=== PATIENT | male | born 1985 | race Caucasian/White ===

== ENCOUNTER 2019-10-26 09:24 | Emergency (ER) | payer MEDICAID ==
[~2019-10-26] VITALS: Ht 175.3 cm; Wt 100.0 kg
[2019-10-26] MEDS ORDERED: acetaminophen 325mg tablet PO STA (09:53)
[2019-10-26] MEDS ORDERED: normal saline 1000ML IV soln IV ONE (09:55)
[2019-10-26] MEDS ORDERED: thiamine 100mg tablet PO ONE (09:55)
[2019-10-26] MEDS ORDERED: folic acid 1mg tablet PO ONE (09:55)
[2019-10-26] MEDS ORDERED: clindamycin 600mg/D5W 50ml 50 ML IV ONE (10:00)
[2019-10-26] MEDS ORDERED: iohexol 300mg/ml 100ml inj. ONE (10:06)
--- NOTE | 2019-10-26 10:20 | NUR ---
PT OUT TO CT VIA WHEELCHAIR WITH SERVICE CENTER REPRESENTATIVE
[2019-10-26 10:22] LABS: BASOPHILS # (AUTO) 0.3 X10'3 (0-0.2); BASOPHILS % (AUTO) 1.2 % (0-1); EOSINOPHILS % (AUTO) 0.1 % (0-6); HEMATOCRIT 38.4 % (42.0-52.0); HEMOGLOBIN 13.3 g/dl (14.0-17.9); LYMPHOCYTES # (AUTO) 0.9 X10'3 (1.1-4.8); LYMPHOCYTES % (AUTO) 4.2 % (21-51); MEAN CORPUSCULAR HEMOGLOBIN 33.6 PG (27.0-31.0); MEAN CORPUSCULAR HGB CONC 34.6 g/dL (33.0-36.5); MEAN CORPUSCULAR VOLUME 97.1 FL (78-98); MEAN PLATELET VOLUME 8.6 FL (7.4-10.4); MONOCYTES % (AUTO) 4.7 % (2-12); NEUTROPHILS # (AUTO) 19.3 X10'3 (1.8-7.7); NEUTROPHILS % (AUTO) 89.8 % (42-75); PLATELET COUNT 123 X10'3 (140-440); RED BLOOD COUNT 3.96 X10'6 (4.70-6.10); RED CELL DISTRIBUTION WIDTH 15.9 % (11.5-14.5); WHITE BLOOD COUNT 21.5 X10'3 (4.5-11.0)
--- NOTE | 2019-10-26 10:32 | NUR ---
pt returns from ct and xray
[2019-10-26 10:35] LABS: PARTIAL THROMBOPLASTIN TIME 39 SECONDS (22-32)
[2019-10-26 10:46] LABS: ALANINE AMINOTRANSFERASE 33 U/L (12-78); ALBUMIN 3.1 G/DL (3.4-5.0); ALBUMIN/GLOBULIN RATIO 0.7 (1.1-1.5); ALKALINE PHOSPHATASE 86 IU/L (46-116); ANION GAP 13 (8-16); ASPARTATE AMINO TRANSFERASE 44 U/L (10-37); BILIRUBIN,TOTAL 0.8 MG/DL (0.1-1.0); BLOOD UREA NITROGEN 9 MG/DL (7-18); BUN/CREATININE RATIO 12.9 (5.4-32.0); CALCIUM 8.7 MG/DL (8.5-10.1); CHLORIDE 91 MMOL/L (99-107); ETHANOL 0.174 GM/DL (0.0-0.010); GLUCOSE 154 MG/DL (70-104); LIPASE 223 U/L (73-393); MAGNESIUM 1.7 MG/DL (1.5-2.4); PHOSPHORUS 2.5 MG/DL (2.3-4.5); SODIUM 134 MMOL/L (135-145); TOTAL CARBON DIOXIDE 29.7 MMOL/L (24-32); TOTAL PROTEIN 7.7 G/DL (6.4-8.2); eGFR > 90 ML/MIN
[2019-10-26] MEDS ORDERED: potassium Cl 10 mEq/100mL bag IV ONE (10:55)
[2019-10-26 11:08] LABS: CLARITY,URINE CLEAR (Clear); COLOR,URINE YELLOW (Yellow); GLUCOSE, URINE NEGATIVE (Neg); KETONES,URINE >=80 mg/dl (Neg); LEUKOCYTE ESTERASE ,URINE NEGATIVE (Neg); NITRITES, URINE NEGATIVE (Neg); OCCULT BLOOD,URINE TRACE-INTACT (Neg); PROTEIN,URINE 100 mg/dl (Neg); UA COLLECTION TYPE URINAL
[2019-10-26 11:13] LABS: BACTERIA,URINE NONE SEEN /HPF (Neg); MUCUS STRANDS FEW /LPF (Neg); RBC,URINE 0-2 /HPF (0-2); SQUAMOUS EPITHELIAL CELL,UR NONE SEEN /LPF (FEW); WBC,URINE 0-4 /HPF (0-4)
[2019-10-26 11:19] LABS: URINE AMPHETAMINE SCREEN NEGATIVE (Neg); URINE BARBITUATE SCREEN NEGATIVE (Neg); URINE BENZODIAZEPINES SCREEN NEGATIVE (Neg); URINE CANNABINOID SCREEN NEGATIVE (Neg); URINE COCAINE SCREEN NEGATIVE (Neg); URINE METHADONE SCREEN NEGATIVE (Neg); URINE OPIATE SCREEN NEGATIVE (Neg); URINE PHENCYCLIDINE SCREEN NEGATIVE (Neg)
[2019-10-26] MEDS ORDERED: dexamethasone sod phosphate 10mg/ml inj IV STA (11:25)
[2019-10-26] MEDS ORDERED: CefTRIAXone 2gm/D5W 50ml 50 ML IV ONE (11:25)
[2019-10-26 12:00] VITALS: BP 130/79
== END 2019-10-26 12:19 | disposition short-term general hospital (02) ==
LOC: ER 09:24
DX: A41.9 Sepsis, unspecified organism (principal); J36 Peritonsillar abscess; Z98.890 Other specified postprocedural states; Z72.89 Other problems related to lifestyle
CPT/HCPCS: 36415; 70491; 71045; 80053; 80305; 80320; 81001; 83605; 83690; 83735; 84100; 84145; 85025; 85610; 85730; 87040; 93005; 96365; 96367; 96375; 99285; J0696; J1100; J3480; J7030; Q9967; 96366; 96368; J3490

== ENCOUNTER 2019-11-07 19:26 | Inpatient (IN) | payer MEDICAID ==
[~2019-11-07] VITALS: Ht 177.8 cm; Wt 102.0 kg
[2019-11-07] MEDS ORDERED: normal saline 1000ML IV soln IVB ONE (19:40)
[2019-11-07 19:53] LABS: BASOPHILS # (AUTO) 0.1 X10'3 (0-0.2); BASOPHILS % (AUTO) 1.1 % (0-1); EOSINOPHILS % (AUTO) 0.1 % (0-6); HEMATOCRIT 40.1 % (42.0-52.0); HEMOGLOBIN 13.6 g/dl (14.0-17.9); LYMPHOCYTES # (AUTO) 0.7 X10'3 (1.1-4.8); MEAN CORPUSCULAR HEMOGLOBIN 34.2 PG (27.0-31.0); MEAN CORPUSCULAR VOLUME 100.5 FL (78-98); MEAN PLATELET VOLUME 8.1 FL (7.4-10.4); MONOCYTES % (AUTO) 7.5 % (2-12); NEUTROPHILS # (AUTO) 11.9 X10'3 (1.8-7.7); NEUTROPHILS % (AUTO) 86.3 % (42-75); PLATELET COUNT 167 X10'3 (140-440); RED BLOOD COUNT 3.98 X10'6 (4.70-6.10); RED CELL DISTRIBUTION WIDTH 16.8 % (11.5-14.5); WHITE BLOOD COUNT 13.8 X10'3 (4.5-11.0)
[2019-11-07] MEDS ORDERED: LORazepam 2 mg/ml vial IV ONE ×2 (20:00→20:20)
[2019-11-07 20:04] LABS: PARTIAL THROMBOPLASTIN TIME 29 SECONDS (22-32)
[2019-11-07 20:06] LABS: ALANINE AMINOTRANSFERASE 60 U/L (12-78); ALKALINE PHOSPHATASE 69 IU/L (46-116); ANION GAP 18 (8-16); ASPARTATE AMINO TRANSFERASE 58 U/L (10-37); BILIRUBIN,TOTAL 1.7 MG/DL (0.1-1.0); BLOOD UREA NITROGEN 10 MG/DL (7-18); BUN/CREATININE RATIO 9.8 (5.4-32.0); CALCIUM 9.2 MG/DL (8.5-10.1); CHLORIDE 92 MMOL/L (99-107); CREATININE 1.02 MG/DL (0.60-1.10); ETHANOL < 0.010 GM/DL (0.0-0.010); GLUCOSE 150 MG/DL (70-104); POTASSIUM 3.1 MMOL/L (3.5-5.1); SODIUM 130 MMOL/L (135-145); TOTAL CARBON DIOXIDE 19.7 MMOL/L (24-32); TOTAL PROTEIN 8.1 G/DL (6.4-8.2); eGFR 85 ML/MIN
[2019-11-07] MEDS ORDERED: potassium chloride 10mEq ER tablet PO STA (20:17)
[2019-11-07 20:20] LABS: PHOSPHORUS 3.1 MG/DL (2.3-4.5)
--- NOTE | 2019-11-07 20:54 | NUR ---
Just given 2nd dose of ativan 1 mg, last was 1 mg 50 min ago. Pt reports [place]WOOD 6 out of 10 and requests something for the pain. HR 104, otherwise vss. Now awaiting hospitalist, takes no home meds, only a supplement daily.
[2019-11-07] MEDS ORDERED: NO HOME MEDS (20:57)
[2019-11-07] MEDS: normal saline 1000ml 1,000 ML IV SCH (21:01)
--- NOTE | 2019-11-07 21:03 | NUR ---
DR. VANG, HOSPITALIST, AT BEDSIDE FOR ADMISSION. PT REPORTS DEDE SIFUENTES SPOKE WITH HIM ABOUT ADMISSION AND HE IS AGREEABLE TO ADMISSION. PT TAKES NO HOME MEDS.
[2019-11-07] MEDS ORDERED: magnesium 2GM in 50ml NS 50 ML IV PRN (21:05)
[2019-11-07] MEDS ORDERED: magnesium 4gm in 100ml NS 100 ML IV PRN (21:05)
[2019-11-07] MEDS ORDERED: acetaminophen 325mg tablet PO PRN (21:05)
[2019-11-07] MEDS ORDERED: dextrose 50%-water 50ml dispensing syringe IV PRN (21:05)
[2019-11-07] MEDS ORDERED: potassium Cl 20 mEq SR tablet PO PRN (21:05)
[2019-11-07] MEDS ORDERED: ondansetron/PF 4mg/2ml inj IV PRN (21:05)
[2019-11-07] MEDS ORDERED: traMADol 50MG tablet PO PRN (21:05)
[2019-11-07] MEDS ORDERED: magnesium Cl slow-release 64mg tablet PO PRN (21:05)
[2019-11-07] MEDS ORDERED: haloperidol 5mg tablet PO PRN (21:05)
[2019-11-07] MEDS ORDERED: magnesium hydroxide 30ml (MOM) UD suspension PO PRN (21:05)
[2019-11-07] MEDS ORDERED: potassium CL 10mEq/100ml bag 100 ML IV PRN ×2 (21:05)
[2019-11-07] MEDS ORDERED: thiamine inj. 100 MG in normal saline 100ml IV soln 100 ML IV ONE (21:05)
[2019-11-07] MEDS ORDERED: mag hydrox/Alum hydrox/simeth 30ml oral suspension PO PRN ×2 (21:05)
[2019-11-07] MEDS ORDERED: ibuprofen tablet 400 MG TABLET PO PRN (21:10)
[2019-11-07 21:23] LABS: CLARITY,URINE CLEAR (Clear); COLOR,URINE ORANGE (Yellow); GLUCOSE, URINE NEGATIVE (Neg); KETONES,URINE >=80 mg/dl (Neg); LEUKOCYTE ESTERASE ,URINE NEGATIVE (Neg); NITRITES, URINE NEGATIVE (Neg); OCCULT BLOOD,URINE SMALL (Neg); PROTEIN,URINE 100 mg/dl (Neg); UROBILINOGEN,URINE 0.2 E.U/dL (0.2-1.0)
[2019-11-07 21:29] LABS: UA COLLECTION TYPE URINAL
[2019-11-07 21:31] LABS: BACTERIA,URINE NONE SEEN /HPF (Neg); RBC,URINE 0-2 /HPF (0-2); SQUAMOUS EPITHELIAL CELL,UR NONE SEEN /LPF (FEW); WBC,URINE 0-4 /HPF (0-4)
[2019-11-07 21:36] LABS: URINE AMPHETAMINE SCREEN NEGATIVE (Neg); URINE BARBITUATE SCREEN NEGATIVE (Neg); URINE BENZODIAZEPINES SCREEN NEGATIVE (Neg); URINE CANNABINOID SCREEN NEGATIVE (Neg); URINE COCAINE SCREEN NEGATIVE (Neg); URINE METHADONE SCREEN NEGATIVE (Neg); URINE OPIATE SCREEN NEGATIVE (Neg); URINE PHENCYCLIDINE SCREEN NEGATIVE (Neg)
[2019-11-07 22:00] VITALS: BP 147/95
--- NOTE | 2019-11-07 22:00 | NUR ---
Arrived @2200 to [facility] 30[facility] on a gurney. Patient was able to walk out of the gurney into the bed. A&Ox4 and vital signs: BP 147/95, HR 116, RR 20, 97% room air, temp 99.4 patient was oriented to the room and educated on telemetry monitoring, MRSA swab, and fall reduction. Questions encouraged and answered.
--- NOTE | 2019-11-07 22:00 | NUR ---
Patient in room PCU 3027. I have received report from HERMAN Hawthorne and had the opportunity to ask questions and assume patient care.
[2019-11-07] MEDS: LORazepam 2 mg/ml vial IV PRN (22:31)
[2019-11-08 02:00] VITALS: BP 136/88
[2019-11-08] MEDS: LORazepam 2 mg/ml vial IV PRN ×5 (04:06→21:19)
[2019-11-08 05:56] LABS: BASOPHILS # (AUTO) 0.1 X10'3 (0-0.2); BASOPHILS % (AUTO) 0.9 % (0-1); EOSINOPHILS # (AUTO) 0.1 X10'3 (0-0.9); EOSINOPHILS % (AUTO) 0.7 % (0-6); HEMATOCRIT 37.9 % (42.0-52.0); LYMPHOCYTES # (AUTO) 0.9 X10'3 (1.1-4.8); LYMPHOCYTES % (AUTO) 9.1 % (21-51); MEAN CORPUSCULAR HEMOGLOBIN 34.2 PG (27.0-31.0); MEAN CORPUSCULAR HGB CONC 34.2 g/dL (33.0-36.5); MEAN CORPUSCULAR VOLUME 100.2 FL (78-98); MEAN PLATELET VOLUME 8.7 FL (7.4-10.4); MONOCYTES # (AUTO) 0.6 X10'3 (0-0.9); MONOCYTES % (AUTO) 5.7 % (2-12); NEUTROPHILS # (AUTO) 8.5 X10'3 (1.8-7.7); NEUTROPHILS % (AUTO) 83.6 % (42-75); PLATELET COUNT 131 X10'3 (140-440); RED BLOOD COUNT 3.79 X10'6 (4.70-6.10); RED CELL DISTRIBUTION WIDTH 16.4 % (11.5-14.5); WHITE BLOOD COUNT 10.2 X10'3 (4.5-11.0)
[2019-11-08 06:00] VITALS: BP 121/68
--- NOTE | 2019-11-08 06:20 | NUR ---
Patient in room PCU 3027. I have received report from Lucie and had the opportunity to ask questions and assume patient care.
[2019-11-08 06:49] LABS: ALANINE AMINOTRANSFERASE 47 U/L (12-78); ALBUMIN 3.6 G/DL (3.4-5.0); ALKALINE PHOSPHATASE 60 IU/L (46-116); AMYLASE 92 U/L (25-115); ANION GAP 15 (8-16); ASPARTATE AMINO TRANSFERASE 47 U/L (10-37); BILIRUBIN,TOTAL 1.5 MG/DL (0.1-1.0); BLOOD UREA NITROGEN 5 MG/DL (7-18); BUN/CREATININE RATIO 7.8 (5.4-32.0); CALCIUM 8.5 MG/DL (8.5-10.1); CHLORIDE 100 MMOL/L (99-107); CREATININE 0.64 MG/DL (0.60-1.10); GLUCOSE 73 MG/DL (70-104); LIPASE 323 U/L (73-393); MAGNESIUM 1.9 MG/DL (1.5-2.4); PHOSPHORUS 1.8 MG/DL (2.3-4.5); SODIUM 137 MMOL/L (135-145); TOTAL CARBON DIOXIDE 21.8 MMOL/L (24-32); TOTAL PROTEIN 7.3 G/DL (6.4-8.2); eGFR > 90 ML/MIN
[2019-11-08] MEDS: normal saline 1000ml 1,000 ML IV SCH ×3 (07:01→20:47)
--- NOTE | 2019-11-08 07:01 | NUR ---
Recevied critical potassium result of 3.0, replacement orders already in
--- NOTE | 2019-11-08 07:03 | NUR ---
Problems reprioritized. Patient report given, questions answered & plan of care reviewed with HERMAN PHILLIPS.
[2019-11-08] MEDS: K and/or MAG REPLACEMENT MC SCH ×2 (07:36→21:22)
[2019-11-08] MEDS: thiamine 100mg tablet PO SCH (07:42)
[2019-11-08] MEDS: folic acid 1mg tablet PO SCH (07:42)
[2019-11-08] MEDS: potassium Cl 20 mEq SR tablet PO PRN ×3 (07:43→17:36)
[2019-11-08 11:17] VITALS: BP 128/85
[2019-11-08 15:25] VITALS: BP 139/101
[2019-11-08 18:00] VITALS: BP 143/103
--- NOTE | 2019-11-08 18:12 | NUR ---
Problems reprioritized. Patient report given, questions answered & plan of care reviewed with Tiffany.
--- NOTE | 2019-11-08 18:25 | NUR ---
Patient in room PCU 3027. I have received report from Gabi SUTTON and had the opportunity to ask questions and assume patient care.
[2019-11-08 22:00] VITALS: BP 141/101
[2019-11-09] MEDS: LORazepam 2 mg/ml vial IV PRN ×3 (01:23→08:58)
[2019-11-09 02:00] VITALS: BP 137/98
[2019-11-09 05:31] LABS: BASOPHILS # (AUTO) 0.1 X10'3 (0-0.2); EOSINOPHILS # (AUTO) 0.1 X10'3 (0-0.9); HEMATOCRIT 37.8 % (42.0-52.0); HEMOGLOBIN 12.8 g/dl (14.0-17.9); LYMPHOCYTES # (AUTO) 0.9 X10'3 (1.1-4.8); LYMPHOCYTES % (AUTO) 12.4 % (21-51); MEAN CORPUSCULAR HEMOGLOBIN 34.3 PG (27.0-31.0); MEAN CORPUSCULAR HGB CONC 33.9 g/dL (33.0-36.5); MEAN CORPUSCULAR VOLUME 101.3 FL (78-98); MONOCYTES # (AUTO) 0.3 X10'3 (0-0.9); NEUTROPHILS # (AUTO) 6.2 X10'3 (1.8-7.7); NEUTROPHILS % (AUTO) 81.6 % (42-75); PLATELET COUNT 99 X10'3 (140-440); RED BLOOD COUNT 3.74 X10'6 (4.70-6.10); WHITE BLOOD COUNT 7.6 X10'3 (4.5-11.0)
[2019-11-09 05:39] LABS: ALANINE AMINOTRANSFERASE 161 U/L (12-78); ALBUMIN 3.8 G/DL (3.4-5.0); ALKALINE PHOSPHATASE 61 IU/L (46-116); AMYLASE 85 U/L (25-115); ANION GAP 10 (8-16); ASPARTATE AMINO TRANSFERASE 245 U/L (10-37); BILIRUBIN,TOTAL 1.4 MG/DL (0.1-1.0); BLOOD UREA NITROGEN 6 MG/DL (7-18); BUN/CREATININE RATIO 9.2 (5.4-32.0); CALCIUM 8.9 MG/DL (8.5-10.1); CHLORIDE 103 MMOL/L (99-107); CREATININE 0.65 MG/DL (0.60-1.10); GLUCOSE 82 MG/DL (70-104); LIPASE 583 U/L (73-393); MAGNESIUM 1.8 MG/DL (1.5-2.4); PHOSPHORUS 1.8 MG/DL (2.3-4.5); POTASSIUM 4.3 MMOL/L (3.5-5.1); SODIUM 137 MMOL/L (135-145); TOTAL CARBON DIOXIDE 23.8 MMOL/L (24-32); TOTAL PROTEIN 7.6 G/DL (6.4-8.2); eGFR > 90 ML/MIN
[2019-11-09 06:00] VITALS: BP 146/96
--- NOTE | 2019-11-09 06:35 | NUR ---
Problems reprioritized. Patient report given, questions answered & plan of care reviewed with Patricia SUTTON.
[2019-11-09] MEDS: K and/or MAG REPLACEMENT MC SCH (08:00)
[2019-11-09] MEDS ORDERED: THIA100T70 PO (10:01)
[2019-11-09] MEDS ORDERED: CHLO25CA10 PO (10:01)
[2019-11-09] MEDS ORDERED: FOLI0.4T2 PO (10:01)
[2019-11-09] MEDS: thiamine 100mg tablet PO SCH (10:33)
[2019-11-09] MEDS: folic acid 1mg tablet PO SCH (10:33)
--- NOTE | 2019-11-09 11:00 | NUR ---
Pt remained stable. discharge orders given. Pt pulled his IV out when nurse left his room. Site was clear and free from s/s complications. IV cath intact. All belongings accounted for. Discharge instructions given and pt stated understanding. Pt was taken to lobby and he was picked up in a private vehicle.
== END 2019-11-09 11:09 | disposition home or self-care (01) | DRG 53 ==
LOC: ER 19:26 → ED HOLD 21:01 → PCU 3S 22:00
PROVIDERS: ADMIT Family Medicine; ATTEND Family Medicine
DX: G40.909 Epilepsy, unspecified, not intractable, without status epilepticus (principal); E87.6 Hypokalemia; F10.239 Alcohol dependence with withdrawal, unspecified; F17.200 Nicotine dependence, unspecified, uncomplicated
CPT/HCPCS: 36415; 70450; 71045; 80053; 80305; 80320; 81001; 82150; 83605; 83690; 83735; 84100; 84132; 85025; 85610; 85730; 87081; 96374; 96375; 97116; 97162; 97530; 99285; G0378; J2060; J3411; J7030

== ENCOUNTER 2019-11-23 11:00 | Inpatient (IN) | payer MEDICAID ==
[~2019-11-23] VITALS: Ht 177.8 cm; Wt 97.7 kg
[~2019-11-23 11:00] MED LIST: CHLO25CA10 PO; FOLI0.4T2 PO; THIA100T70 PO
[2019-11-23] MEDS ORDERED: normal saline 1000ML IV soln IVB ONE ×2 (11:25→12:20)
[2019-11-23 11:33] LABS: CLARITY,URINE CLEAR (Clear); COLOR,URINE YELLOW (Yellow); GLUCOSE, URINE NEGATIVE (Neg); KETONES,URINE 40 mg/dl (Neg); LEUKOCYTE ESTERASE ,URINE NEGATIVE (Neg); NITRITES, URINE NEGATIVE (Neg); OCCULT BLOOD,URINE NEGATIVE (Neg); PH,URINE 7.5 (4.8-8.0); PROTEIN,URINE TRACE mg/dl (Neg)
[2019-11-23 11:40] LABS: UA COLLECTION TYPE CLN CATCH MIDSTREAM
[2019-11-23] MEDS ORDERED: ondansetron/PF 4mg/2ml inj IV ONE (11:40)
[2019-11-23 11:41] LABS: BACTERIA,URINE NONE SEEN /HPF (Neg); MUCUS STRANDS NONE SEEN /LPF (Neg); RBC,URINE 0-2 /HPF (0-2); SQUAMOUS EPITHELIAL CELL,UR FEW /LPF (FEW); WBC,URINE 0-4 /HPF (0-4)
[2019-11-23 11:44] LABS: URINE AMPHETAMINE SCREEN NEGATIVE (Neg); URINE BARBITUATE SCREEN NEGATIVE (Neg); URINE BENZODIAZEPINES SCREEN POSITIVE (Neg); URINE CANNABINOID SCREEN NEGATIVE (Neg); URINE COCAINE SCREEN NEGATIVE (Neg); URINE METHADONE SCREEN NEGATIVE (Neg); URINE OPIATE SCREEN NEGATIVE (Neg); URINE PHENCYCLIDINE SCREEN NEGATIVE (Neg)
[2019-11-23 11:47] LABS: BASOPHILS # (AUTO) 0.1 X10'3 (0-0.2); BASOPHILS % (AUTO) 0.9 % (0-1); EOSINOPHILS % (AUTO) 0.6 % (0-6); HEMATOCRIT 36.1 % (42.0-52.0); HEMOGLOBIN 12.8 g/dl (14.0-17.9); LYMPHOCYTES # (AUTO) 0.8 X10'3 (1.1-4.8); LYMPHOCYTES % (AUTO) 11.2 % (21-51); MEAN CORPUSCULAR HEMOGLOBIN 34.9 PG (27.0-31.0); MEAN CORPUSCULAR HGB CONC 35.6 g/dL (33.0-36.5); MEAN CORPUSCULAR VOLUME 98.2 FL (78-98); MEAN PLATELET VOLUME 10.5 FL (7.4-10.4); MONOCYTES # (AUTO) 0.7 X10'3 (0-0.9); MONOCYTES % (AUTO) 9.9 % (2-12); NEUTROPHILS # (AUTO) 5.7 X10'3 (1.8-7.7); NEUTROPHILS % (AUTO) 77.4 % (42-75); PLATELET COUNT 98 X10'3 (140-440); RED BLOOD COUNT 3.67 X10'6 (4.70-6.10); RED CELL DISTRIBUTION WIDTH 14.8 % (11.5-14.5); WHITE BLOOD COUNT 7.3 X10'3 (4.5-11.0)
[2019-11-23 11:58] LABS: ALANINE AMINOTRANSFERASE 48 U/L (12-78); ALBUMIN 3.5 G/DL (3.4-5.0); ALBUMIN/GLOBULIN RATIO 0.9 (1.1-1.5); ALKALINE PHOSPHATASE 67 IU/L (46-116); ANION GAP 8 (8-16); ASPARTATE AMINO TRANSFERASE 80 U/L (10-37); BILIRUBIN,TOTAL 2.4 MG/DL (0.1-1.0); BLOOD UREA NITROGEN 15 MG/DL (7-18); CALCIUM 8.5 MG/DL (8.5-10.1); CHLORIDE 81 MMOL/L (99-107); ETHANOL < 0.010 GM/DL (0.0-0.010); GLUCOSE 135 MG/DL (70-104); SODIUM 123 MMOL/L (135-145); TOTAL CARBON DIOXIDE 34.4 MMOL/L (24-32); TOTAL PROTEIN 7.3 G/DL (6.4-8.2); eGFR 87 ML/MIN
[2019-11-23 12:03] LABS: POTASSIUM 2.2 MMOL/L (3.5-5.1)
[2019-11-23] MEDS ORDERED: LORazepam 2 mg/ml vial IV ONE (12:20)
[2019-11-23] MEDS ORDERED: potassium Cl 20 mEq SR tablet PO ONE (12:20)
[2019-11-23] MEDS ORDERED: potassium Cl 10 mEq/100mL bag IV ONE (12:20)
[2019-11-23 12:33] LABS: MAGNESIUM 1.1 MG/DL (1.5-2.4)
[2019-11-23] MEDS ORDERED: MVI, adult No.4 with vit. K 10 ML in dextrose 5% water 500ml 500 ML IV SCH ×2 (13:00)
[2019-11-23] MEDS ORDERED: LORazepam 1 MG tablet PO PRN (13:10)
[2019-11-23] MEDS ORDERED: potassium Cl 20 mEq SR tablet PO PRN (13:10)
[2019-11-23] MEDS ORDERED: ondansetron/PF 4mg/2ml inj IV PRN (13:10)
[2019-11-23] MEDS ORDERED: magnesium 2GM in 50ml NS 50 ML IV PRN (13:10)
[2019-11-23] MEDS ORDERED: LORazepam 2 mg/ml vial IV PRN (13:10)
[2019-11-23] MEDS ORDERED: cyclobenzaprine 10mg tablet PO PRN (13:10)
[2019-11-23] MEDS ORDERED: magnesium 4gm in 100ml NS 100 ML IV PRN (13:10)
[2019-11-23] MEDS ORDERED: acetaminophen 325mg tablet PO PRN ×2 (13:10)
[2019-11-23] MEDS ORDERED: potassium CL 10mEq/100ml bag 100 ML IV PRN ×2 (13:10)
[2019-11-23] MEDS ORDERED: MAGNESIUM IV SCH (13:30)
[2019-11-23] MEDS ORDERED: THIAMINE IV SCH (13:30)
[2019-11-23] MEDS ORDERED: NORMAL SALINE IV SCH (13:30)
[2019-11-23] MEDS: atenolol 25mg tablet PO SCH (13:40)
[2019-11-23] MEDS: magnesium Cl slow-release 64mg tablet PO PRN ×2 (13:40→19:31)
[2019-11-23] MEDS: normal saline 1000ml 1,000 ML IV SCH (13:42)
[2019-11-23] MEDS ORDERED: thiamine inj. 100 MG in normal saline 100ml IV soln 100 ML IV SCH (14:00)
[2019-11-23] MEDS ORDERED: NO HOME MEDS (15:04)
[2019-11-23 15:43] LABS: LIPASE 255 U/L (73-393)
--- NOTE | 2019-11-23 15:49 | NUR ---
called tele to give report rn will call back was unavaliable
[2019-11-23 16:44] VITALS: BP 146/86
--- NOTE | 2019-11-23 18:23 | NUR ---
Problems reprioritized. Patient report given, questions answered & plan of care reviewed with
[2019-11-23 18:40] LABS: MAGNESIUM 1.3 MG/DL (1.5-2.4)
[2019-11-23 18:51] LABS: POTASSIUM 2.5 MMOL/L (3.5-5.1)
[2019-11-23 19:00] VITALS: BP 116/75
[2019-11-23] MEDS: potassium Cl 20 mEq SR tablet PO PRN ×2 (19:31→23:41)
[2019-11-23] MEDS: heparin, porcine 5000 units/ml vial SQ SCH (19:34)
[2019-11-23] MEDS: docusate sod 100mg capsule PO SCH (19:34)
[2019-11-23] MEDS: K and/or MAG REPLACEMENT MC SCH (19:37)
[2019-11-23 20:00] VITALS: BP_SYST 114; BP_SYST 141; BP_SYST 146; BP_DIAS 77; BP_DIAS 84; BP_DIAS 88
[2019-11-23 23:00] VITALS: BP 146/88
[2019-11-24 03:00] VITALS: BP 148/82
[2019-11-24] MEDS: normal saline 1000ml 1,000 ML IV SCH ×2 (03:00→09:07)
[2019-11-24] MEDS: potassium Cl 20 mEq SR tablet PO PRN ×3 (04:17→13:05)
--- NOTE | 2019-11-24 06:32 | NUR ---
Patient in room PCU 3014. I have received report from HERMAN Hooks and had the opportunity to ask questions and assume patient care. Patient asleep in bed and in no acute distress.
[2019-11-24 06:47] LABS: BASOPHILS # (AUTO) 0.1 X10'3 (0-0.2); BASOPHILS % (AUTO) 1.3 % (0-1); EOSINOPHILS # (AUTO) 0.1 X10'3 (0-0.9); EOSINOPHILS % (AUTO) 1.6 % (0-6); HEMATOCRIT 31.7 % (42.0-52.0); HEMOGLOBIN 11.3 g/dl (14.0-17.9); MEAN CORPUSCULAR HEMOGLOBIN 36.1 PG (27.0-31.0); MEAN CORPUSCULAR HGB CONC 35.6 g/dL (33.0-36.5); MEAN CORPUSCULAR VOLUME 101.3 FL (78-98); MEAN PLATELET VOLUME 10.1 FL (7.4-10.4); MONOCYTES # (AUTO) 0.8 X10'3 (0-0.9); MONOCYTES % (AUTO) 13.6 % (2-12); NEUTROPHILS # (AUTO) 3.7 X10'3 (1.8-7.7); NEUTROPHILS % (AUTO) 65.5 % (42-75); PLATELET COUNT 93 X10'3 (140-440); RED BLOOD COUNT 3.13 X10'6 (4.70-6.10); RED CELL DISTRIBUTION WIDTH 14.7 % (11.5-14.5); WHITE BLOOD COUNT 5.6 X10'3 (4.5-11.0)
[2019-11-24 06:53] LABS: ALANINE AMINOTRANSFERASE 37 U/L (12-78); ALBUMIN 2.9 G/DL (3.4-5.0); ALBUMIN/GLOBULIN RATIO 0.9 (1.1-1.5); ALKALINE PHOSPHATASE 55 IU/L (46-116); ANION GAP 9 (8-16); ASPARTATE AMINO TRANSFERASE 57 U/L (10-37); BILIRUBIN,TOTAL 1.3 MG/DL (0.1-1.0); BLOOD UREA NITROGEN 6 MG/DL (7-18); BUN/CREATININE RATIO 8.5 (5.4-32.0); CHLORIDE 96 MMOL/L (99-107); CREATININE 0.71 MG/DL (0.60-1.10); GLUCOSE 72 MG/DL (70-104); MAGNESIUM 1.5 MG/DL (1.5-2.4); PHOSPHORUS 1.8 MG/DL (2.3-4.5); SODIUM 131 MMOL/L (135-145); TOTAL CARBON DIOXIDE 26.4 MMOL/L (24-32); TOTAL PROTEIN 6.1 G/DL (6.4-8.2); eGFR > 90 ML/MIN
[2019-11-24 06:56] LABS: POTASSIUM 2.6 MMOL/L (3.5-5.1)
[2019-11-24 07:00] VITALS: BP 123/67
--- NOTE | 2019-11-24 07:17 | NUR ---
Paged Dr. Valentino regarding critical K of 2.6 PAGER ID: [phone] MESSAGE: [id number]. Harry Lopez. Critical K of 2.6. Thank you. Rosemarie SUTTON x [phone]
[2019-11-24] MEDS ORDERED: pantoprazole 40mg Tablet.DR PO SCH (07:30)
[2019-11-24 08:00] VITALS: BP_SYST 114; BP_SYST 115; BP_SYST 119; BP_DIAS 64; BP_DIAS 75; BP_DIAS 81
[2019-11-24] MEDS ORDERED: multivitamins, therapeutics tablet PO SCH (08:00)
[2019-11-24] MEDS ORDERED: thiamine 100mg tablet PO SCH ×2 (08:00)
[2019-11-24] MEDS: heparin, porcine 5000 units/ml vial SQ SCH (08:00)
[2019-11-24] MEDS: docusate sod 100mg capsule PO SCH (08:00)
[2019-11-24] MEDS ORDERED: folic acid 1mg tablet PO SCH (08:00)
[2019-11-24] MEDS: atenolol 25mg tablet PO SCH (08:13)
[2019-11-24] MEDS: K and/or MAG REPLACEMENT MC SCH (08:16)
--- NOTE | 2019-11-24 08:50 | NUR ---
Stacey Valentino regarding patient's refusal of Colace and holding the heparin. PAGER ID: [phone] MESSAGE: Harry Lopez. Patient refused colace, and heparin was held for platelets of 93. Thank you. Rosemarie SUTTON x [phone] Addendum: 11/24/19 at 0852 by Rosemarie Younger RN Dr. Valentino called back and said that that was fine.
[2019-11-24 11:00] VITALS: BP 130/90
--- NOTE | 2019-11-24 12:49 | NUR ---
Orders for phosphorus replacement put in per Dr. Valentino.
[2019-11-24] MEDS ORDERED: sodium phosphate inj. 15 MMOL in dextrose 5%-water 250 ML IV ONE (12:50)
--- NOTE | 2019-11-24 13:21 | NUR ---
Paged Dr. Valentino regarding patient wanting to leave AMA. PAGER ID: [phone] MESSAGE: [id number]. Harry Lopez. Patient wants to leave AMA
--- NOTE | 2019-11-24 13:26 | NUR ---
Paged Dr. Valentino regarding patient leaving AMA. PAGER ID: [phone] MESSAGE: [id number]. Harry Lopez. Patient leaving AMA. Thank you. Rosemarie SUTTON x [phone]
--- NOTE | 2019-11-24 13:30 | NUR ---
Patient left AMA. Patient was educated on risks of leaving AMA. Patient belongings collected and sent with the patient. call center consultant discontinued. PIV discontinued and cannula intact. Patient walked down to the lobby and left.
[2019-11-27] MEDS ORDERED: LORazepam 2 mg/ml vial IV PRN (13:10)
[2019-11-27] MEDS ORDERED: LORazepam 1 MG tablet PO PRN (13:10)
== END 2019-11-24 13:30 | disposition left against medical advice (07) | DRG 53 ==
LOC: ER 11:01 → ED HOLD 13:07 → EDBEDREQ 14:20 → PCU 3S 16:27
PROVIDERS: ADMIT Internal Medicine; ATTEND Internal Medicine
DX: R56.9 Unspecified convulsions (principal); D69.59 Other secondary thrombocytopenia; F10.230 Alcohol dependence with withdrawal, uncomplicated; Z53.29 Procedure and treatment not carried out because of patient's decision for other reasons; E87.1 Hypo-osmolality and hyponatremia; E87.6 Hypokalemia; R74.8 Abnormal levels of other serum enzymes
CPT/HCPCS: 36415; 70450; 80053; 80305; 80320; 81001; 82948; 83690; 83735; 84100; 84132; 85025; 87081; 93005; 96361; 96374; 96375; 99285; G0378; J2060; J2405; J3411; J3480; J7030; J7060

== ENCOUNTER 2020-07-07 17:54 | Emergency (ER) | payer MEDICAID ==
[~2020-07-07] VITALS: Ht 175.3 cm; Wt 86.4 kg
[~2020-07-07 17:54] MED LIST changes: -CHLO25CA10 PO; -FOLI0.4T2 PO; +NO HOME MEDS; -THIA100T70 PO
[2020-07-07] MEDS ORDERED: LORazepam 2 mg/ml vial IV ONE (18:15)
[2020-07-07 19:02] LABS: ALANINE AMINOTRANSFERASE 42 U/L (12-78); ALBUMIN 3.9 G/DL (3.4-5.0); ALBUMIN/GLOBULIN RATIO 1.1 (1.1-1.5); ALKALINE PHOSPHATASE 77 IU/L (46-116); ANION GAP 14 (8-16); ASPARTATE AMINO TRANSFERASE 52 U/L (10-37); BILIRUBIN,TOTAL 1.5 MG/DL (0.1-1.0); BLOOD UREA NITROGEN 6 MG/DL (7-18); BUN/CREATININE RATIO 7.1 (5.4-32.0); CALCIUM 8.4 MG/DL (8.5-10.1); CHLORIDE 93 MMOL/L (99-107); CREATININE 0.85 MG/DL (0.60-1.10); GLUCOSE 152 MG/DL (70-104); POTASSIUM 3.2 MMOL/L (3.5-5.1); SODIUM 132 MMOL/L (135-145); TOTAL CARBON DIOXIDE 25.3 MMOL/L (24-32); TOTAL PROTEIN 7.5 G/DL (6.4-8.2); eGFR > 90 ML/MIN
[2020-07-07 20:07] VITALS: BP 136/90
== END 2020-07-07 20:09 | disposition home or self-care (01) ==
LOC: ER 17:54
DX: F10.230 Alcohol dependence with withdrawal, uncomplicated (principal); R56.9 Unspecified convulsions; I10 Essential (primary) hypertension; Z98.890 Other specified postprocedural states; Z72.89 Other problems related to lifestyle; Z60.9 Problem related to social environment, unspecified; Y90.9 Presence of alcohol in blood, level not specified
CPT/HCPCS: 36415; 80053; 96374; 99283; J2060